=== PATIENT | male | born 1995 | race Caucasian/White ===

== ENCOUNTER 2023-12-10 16:41 | Emergency (ER) | payer SELFPAY ==
--- OUTSIDE RECORDS SUMMARY | 2023-12-10 16:44 | XMS REPORT | Continuity of Care Document ---
Author Name Unknown Address [address] [facility] [place] [address] [facility] Address [address] [place] [address] Care Team Providers Care Care Professionals Name Role Phone Pcp, Patient Does Not Have A Primary Care Physic leila DISHA LIAO Attending Clinician Unavailable DISHA LIAO Attending Clinician Unavailable Jean SZYMANSKI Attending Clinician Unavailable Jean Garcia Attending Clinician [phone] Doctor Unassigned, [place] Attending Clinician U Alejandro Emanuel Attending Clinician ALEJANDRO JONES Attending Clinician Unavailable Jean SZYMANSKI Admitting Clinician Unavailable Problems Condition Name Condition Details Condition Category Status Onset Date Resolution Date Last Treatment Date Treating Clinician Comments Source Leg pain, right Leg pain, right Disease Active 12-17 00:00: 00 [facility] Allergies, Adverse Reactions, Alerts Allergy Name Allergy Type Status Severity Reaction(s) Onset Date Inactive Date Treating Clinician Comments Source NO KNOWN ALLERGIE S Drug Class Active [facility] Social History Social Habit Start Date Stop Date Quantity Comments Source Exposure to SARS-CoV-2 (event) Not sure [facility] 2023-11-29 00:00:00 2023-11-29 00:00:00 0 /d [facility] History of Social function 2023-11-29 00:00:00 2023-11-29 00:00:00 [facility] Sex Assigned At 1995 00:00:00 1995 00:00:00 [facility] Smoking Status Start Date Stop Date Source Never smoked tobacco [facility] Medications Ordered Medication Name Filled Medication Name Start Date Stop Date Current Medication? Ordering Clinician Indication Dosage Frequency Signature (SIG) Comments Components Source IBUPROFEN, BULK, MISC 11-28 11:26: 12 Yes [facility] celecoxib (CELEBREX) 100 mg capsule 11-28 00:00: 00 12-06 04:59 :00 Yes [id number] 100mg Take 1 capsule by mouth in the morning and 1 capsule in the evening. Take with meals. Do all this for 7 days. [facility] ibuprofen 600 mg tablet 2019-09 00:00: 00 Yes [id number] 600mg Take 1 tablet by mouth every 6 (six) hours as needed for Pain (scale 4-6). [facility] tetanus-dip htheria toxoids (TDVAX) 2-2 Lf unit/0.5 mL injection 0.5 mL 02-07 00:15: 00 02-06 23:27 :00 No .5mL 0.5 mL, Intramuscu lar, ONCE, 1 dose, Wed02/07/20 at 191, Routine [facility] cephALEXin (KEFLEX) capsule 500 mg 02-07 00:15: 00 02-06 23:26 :00 No 500mg 500 mg, Oral, ONCE, 1 dose, Wed02/07/20 at 191, HARDY
Re ason for Anti-Infec tive: Documented Infection< br>Documen gopi Infection Site: Skin / Soft Tissue
Duration of Therapy: 7 days [facility] doxycycline hyclate (Vibramycin ) capsule 100 mg 02-07 00:15: 00 02-06 23:26 :00 No 100mg 100 mg, Oral, ONCE, 1 dose, Wed02/07/20 at 191, HARDY
Re ason for Anti-Infec tive: Documented Infection< br>Documen gopi Infection Site: Skin / Soft Tissue
Duration of Therapy: 7 days [facility] ibuprofen 800 mg tablet 02-06 00:00: 00 Yes [id number] 800mg Take 1 tablet by mouth every 8 (eight) hours as needed for Pain (scale 1-3). [facility] cephALEXin 500 mg capsule 02-06 00:00: 00 02-14 04:59 :00 No [id number] 500mg Take 1 capsule by mouth 4 (four) times daily for 7 days. [facility] doxycycline hyclate 100 mg capsule 02-06 00:00: 00 02-14 04:59 :00 No [id number] 100mg Take 1 capsule by mouth 2 (two) times daily for 7 days. [facility] IBUPROFEN, BULK, MISC 12-17 20:52: 02 Yes [facility] 12-17 15:52: 02 Yes [facility] Immunizations Ordered Immunization Name Filled Immunization Name Date Status Comments Source Td 2020-02-07 00:00:00 Completed [facility] Td 2020-02-07 00:00:00 Completed [facility] TD, NOS Unknown Completed [facility] TD, NOS Unknown Completed [facility] TD, NOS Unknown Completed [facility] TD, NOS Unknown Completed [facility] Vital Signs Vital Name Observation Time Observation Value Comments S ource Systolic blood pressure 2023-11-29 16:25:00 124 mm[Hg] [facility] Diastolic blood pressure 2023-11-29 16:25:00 83 mm[Hg] [facility] Heart rate 2023-11-29 16:25:00 63 /min [facility] Body temperature 2023-11-29 16:24:00 36.61 Vivi [facility] Respiratory rate 2023-11-29 16:24:00 18 /min [facility] Body height 2023-11-29 16:24:00 165.1 cm [facility] Body weight 2023-11-29 16:24:00 71.396 kg [facility] BMI 2023-11-29 16:24:00 26.19 kg/m2 [facility] Oxygen saturation in Arterial blood by Pulse oximetry 2023-11-29 16:24:00 99 /min [facility] Systolic blood pressure 2023-11-17 03:54:00 147 mm[Hg] [facility] Diastolic blood pressure 2023-11-17 03:54:00 100 mm[Hg] [facility] Heart rate 2023-11-17 03:54:00 97 /min [facility] Respiratory rate 2023-11-17 03:54:00 15 /min [facility] Body temperature 2023-11-17 00:26:00 36.61 Vivi [facility] Body height 2023-11-17 00:26:00 165.1 cm [facility] Body weight 2023-11-17 00:26:00 70.489 kg [facility] BMI 2023-11-17 00:26:00 25.86 kg/m2 [facility] Oxygen saturation in Arterial blood by Pulse oximetry 2023-11-17 00:26:00 100 /min [facility] Respiratory rate 2020-07-09 21:00:00 18 /min [facility] Systolic blood pressure 2020-07-09 19:30:00 140 mm[Hg] [facility] Diastolic blood pressure 2020-07-09 19:30:00 106 mm[Hg] [facility] Heart rate 2020-07-09 19:30:00 96 /min [facility] Oxygen saturation in Arterial blood by Pulse oximetry 2020-07-09 19:30:00 97 /min [facility] Body temperature 2020-07-09 18:47:00 37.06 Vivi [facility] Body weight 2020-07-09 18:47:00 65.772 kg [facility] BMI 2020-07-09 18:47:00 23.40 kg/m2 [facility] Systolic blood pressure 2020-02-07 23:31:42 152 mm[Hg] [facility] Diastolic blood pressure 2020-02-07 23:31:42 107 mm[Hg] [facility] Heart rate 2020-02-07 23:31:42 108 /min [facility] Respiratory rate 2020-02-07 23:31:42 17 /min [facility] Body temperature 2020-02-07 22:52:00 37 Vivi [facility] Body height 2020-02-07 22:52:00 167.6 cm [facility] Body weight 2020-02-07 22:52:00 70.761 kg [facility] BMI 2020-02-07 22:52:00 25.18 kg/m2 [facility] Oxygen saturation in Arterial blood by Pulse oximetry 2020-02-07 22:52:00 99 /min [place] [facility] Procedures Procedure Date / Time Performed Performing Clinician Source ED SPLINT APPLICATION 2023-11-17 03:41:42 Jean Szymanski [facility] ASSIGNMENT OF BENEFITS 2023-11-17 00:36:00 Docto r Unassigned, [place] [facility] CONSENT/REFUSAL FOR DIAGNOSIS AND TREATMENT 2023-11-17 00:21:47 Doctor Unassigned, [place] [facility] NOTICE OF PRIVACY PRACTICES 2023-11-17 00:20:07 Doctor Unassigned, [place] [facility] URINALYSIS 2020-07-09 20:22:00 [facility] LIPASE 2020-07-09 19:24:00 Jean Szymanski [facility] MAGNESIUM 2020-07-09 19:24:00 Jena [facility]zymanski [facility] COMP. METABOLIC PANEL (74154) 2020-07-09 19:24:00 Jean Szymanski [facility] CBC WITH DIFF 2020-07-09 19:24:00 Jean Szymanski [facility] PROTHROMBIN TIME / INR 2020-07-09 19:24:00 Jean Szymanski [facility] ACTIVATED PARTIAL THRMPLAS YASHIRA 2020-07-09 19:24:00 Jean Szymanski [facility] NOTICE OF PRIVACY PRACTICES 2020-07-09 18:38:08 Doctor Unassigned, [place] [facility] CONSENT/REFUSAL FOR DIAGNOSIS AND TREATMENT 2020-07-09 18:37:45 Doctor Unassigned, [place] [facility] Encounters Start Date/Time End Date/Time Encounter Type Admission Type Attending Clinicians Care Facility Care Department Encounter ID Source 2023-11-29 11:30:00 2023-11-29 11:45:02 Outpatient R DISHA LIAO [facility] [id number] [facility] 2023-11-29 11:30:00 2023-11-29 11:45:02 Office Visit Disha Liao [facility] [id number] [id number] 4.2.7.2.686 [id number] [facility] 2023-11-16 19:27:00 2023-11-16 23:30:00 Emergency X Jean SZYMANSKI [facility] ERT [id number] [facility] 2023-11-16 19:27:00 2023-11-16 23:30:00 Emergency Jean Szymanski [facility] [id number] 350.1.13.10 4.2.7.2.686 [id number] [facility] 2023-11-16 00:00:00 2023-11-16 00:00:00 Orders Only Doctor Unassigned, [place] [facility] [id number] 350.1.13.10 4.2.7.2.686 [id number] [facility] 2023-10-11 13:50:24 2023-10-11 13:50:[address] [facility] [id number] Ayaan Magallanes 2020-07-09 13:04:00 2020-07-09 15:29:00 Emergency Jean Szymanski [facility] [id number] [id number] 4.2.7.2.686 [id number] [facility] 2020-07-09 12:37:00 2020-07-09 12:37:00 Emergency X [facility] ERT [id number] [facility] 2020-02-07 17:56:30 2020-02-07 18:43:00 Emergency Alejandro Jones [facility] [id number] 350.1.13.10 4.2.7.2.686 [id number] [facility] 2020-02-07 17:48:00 2020-02-07 17:48:00 Emergency X ALEJANDRO JONES [facility] ERT [id number] [facility] Results Test Description Test Time Test Comments Results Result Co mments Source [facility] [id number] 19:57:00* Test Item Value Reference Range Interpretation Comme [facility] APTT Patient (test code = 3173-2) See_Comment [Automated message] The system which generated this result transmitted reference range: 23 - 38 Seconds. The reference range was not used to interpret this result as normal/abnormal. ELYSSA (test code = ELYSSA) The [facility] patient population mean normal value for aPTT is 30 seconds. Lab Interpretation (test code = 86758-7) Normal [facility] / [id number] 19:55:00* Test Item Value Reference Range Interpretation Comme [facility] PROTIME PATIENT (test code = 5964-2) See_Comment [Automated messa ge] The system which generated this result transmitted reference range: 12.0 - 14.7 Seconds. The reference range was not used to interpret this result as normal/abnormal. INR (test code = 6301-6) Normal INR <1.1; Warfarin Therapeutic range 2.0 to 3.0 or 2.5 to 3.5, depending upon the indications. Lab Interpretation (test code = 22396-4) Normal [facility]03 19:52:00* Test Item Value Reference Range Interpretation Comme [facility] MAGNESIUM (test code = 7243891910) 2.0 mg/dL 1.7-2.4 Lab Interpretation (test cod e = 85334-0) [facility] (62412)2020-07-09 19:51:00* Test Item Value Reference Range Interpretation Comme nts NA (test code = 1830580450) 139 mmol/L 135-145 K (test code = 8382339234) 4.2 mmol/L 3.5-5 CL (test code = 5927737567) 101 mmol/L 98-108 CO2 TOTAL (test code = 1691214328) 28 mmol/L 23-31 AGAP (test code = 0434813795) 2-16 BUN (test code = 4225386208) 4 mg/dL 7-23 L GLUCOSE (test code = 5544269069) 106 mg/dL 70-110 CREATININE (test code = 8779423720) 0.81 mg/dL 0.6-1.25 TOTAL BILI (test code = 7523235532) 0.8 mg/dL 0.1-1.1 CALCIUM (test code = 2939305035) 9.8 mg/dL 8.6-10.6 T PROTEIN (test code = 4251430934) 8.7 g/dL 6.3-8.2 H ALBUMIN (test code = 9415509866) 5.1 g/dL 3.5-5 H ALK PHOS (test code = 6601141465) 104 U/L 34-122 ALTv (test code = 1742-6) 96 U/L 5-50 H AST(SGOT) (test code = 5786512282) 167 U/L 13-40 H eGFR Calculation (Non-) (test code = 6032988123) mL/min/1.73m2 eGFR Calculation () (test code = 3196365090) mL/min/1.73m2 ELYSSA (test code = ELYSSA) Association of Glomerular Filtration Rate (GFR) and Staging of Kidney Disease* + --+ --+ ------+| GFR (mL/min/1.73 m2) ?| With Kidney Damage ?| ?Without Kidney Damage+ --------+ --------+ +| ?>90 ?| ?Stage one ?| ? Normal ?+ ---+ ---+ -------+| ?60-89 ?| ?Stage two ?| ? Decreased GFR ? + --+ --+ ------+| ?30-59 ?| ?Stage three ?| ? Stage three ? + --+ --+ ------+| ?15-29 ?| ?Stage four ? | ? Stage four ?+ ---+ ---+ -------+| ?<15 (or dialysis) ? ?| ?Stage five ? | ? Stage five ?+ ---+ ---+ -------+ *Each stage assumes the associated GFR level has been in effect for at least three months. ?Stages 1 to 5, with or without kidney disease, indicate chronic kidney disease. Notes: Determination of stages one and two (with eGFR >59mL/min/1.73 m2) requires estimation of kidney damage for at least three months as defined by structural or functional abnormalities of the kidney, manifested by either:Pathological abnormalities or Markers of kidney damage (including abnormalities in the composition of the blood or urine or abnormalities in imaging tests). Lab Interpretation (test code = 51681-3) [facility] 19:51:00* Test Item Value Reference Range Interpretation Comme nts LIPASE (test code = 5447649823) 252 U/L 0-220 H Lab Interpretation (test cod e = 02946-3) [facility]normal [facility] [id number] 19:48:00* Test Item Value Reference Range Interpretation Comme nts WBC (test code = 6690-2) See_Comment [Automated WP Fail-Safe] The system which generated this result transmitted reference range: 4.20 - 10.70 10*3/?L. The reference range was not used to interpret this result as normal/abnormal. RBC (test code = 789-8) See_Comment [Thirsty] The system which generated this result transmitted reference range: 4.26 - 5.52 10*6/?L. The reference range was not used to interpret this result as normal/abnormal. HGB (test code = 718-7) 15.1 g/dL 12.2-16.4 HCT (test code = 4544-3) 43.3 % 38.4-49.3 MCV (test code = 787-2) 94.7 fL 81.7-95.6 MCH (test code = 785-6) 33.0 pg 26.1-32.7 H MCHC (test code = 786-4) 34.9 g/dL 31.2-35 RDW-SD (test code = 53983-4) 40.5 fL 38.5-51.6 RDW-CV (test code = 788-0) 11.7 % 12.1-15.4 L PLT (test code = 777-3) See_Comment [Automated messa ge] The system which generated this result transmitted reference range: 150 - 328 10*3/?L. The reference range was not used to interpret this result as normal/abnormal. MPV (test code = 84894-9) 10.0 fL 9.8-13 NRBC/100 WBC (test code = 5411598422) See_Comment [Automated Vontoo ssage] The system which generated this result transmitted reference range: 0.0 - 10.0 /100 WBCs. The reference range was not used to interpret this result as normal/abnormal. NRBC x10^3 (test code = 2851201609) <0.01 See_Comment [Automated messa ge] The system which generated this result transmitted reference range: 10*3/?L. The reference range was not used to interpret this result as normal/abnormal. GRAN MAT (NEUT) % (test code = 770-8) 48.9 % IMM GRAN % (test code = 3368852889) 0.20 % LYMPH % (test code = 736-9) 37.7 % MONO % (test code = 5905-5) 11.5 % EOS % (test code = 713-8) 0.5 % BASO % (test code = 706-2) 1.2 % GRAN MAT x10^3(ANC) (test code = 6496309221) 2.84 10*3/uL 1.99-6.95 IMM GRAN x10^3 (test code = 2631303891) <0.03 0-0.06 LYMPH x10^3 (test code = 731-0) 2.19 10*3/uL 1.09-3.23 MONO x10^3 (test code = 742-7) 0.67 10*3/uL 0.36-1.02 EOS x10^3 (test code = 711-2) 0.03 10*3/uL 0.06-0.53 L BASO x10^3 (test code = 704-7) 0.07 10*3/uL 0.01-0.09 Lab Interpretation (test code = 46685-2) Abnormal [facility] Notes Date/Time Note Provider Source 2023-11-16 23:29:21 bo5jQ/jfBRIizpkyUP5+ 0Gnsz/0H3+h91S nV50/WPx5iMzVcDse26i9Wy6vUlYW/2023T23:29:21 Awake, alert oriented X4, respiratory even and unlabored,skin w/d color appropriate for race, moves all ext well, pt encouraged to follow up with pcp and or return as neededPt given printed and verbal discharge instructions regarding Closed displaced fracture of fifth metacarpal bone of right hand , Pain of right hand, hypertension , patient verbralized understanding and signature obtained, patient denies any other concerns.Advised to seek medical attention for new/prolonged/worsening of symptoms,No adverse reaction to meds given in ER noted upon dischargePt [facility] 66429-0Yieuckzsf department ThfhFW5974-74-24H39:30:18Emergen department NoteTXT1.2.840.465333.1.13.104.2.7 .2.802507|[id number] for patient kryb76033-6ZlmtGXCPZODPQOOZumsziks d C-CDA narrative [id number] J Hoot RN[address] Iq[id number] 98IJNAOZHRBAYVBMHKAKXAGW9331-16-48 T23:30:181.2.840.372535.1.72.3.15| 1.2.840.691313.1.13.104.2.7.2.7278 [id number] Priscilla Cortes RN [facility] 2023-11-16 19:23:17 A6zAMGfVzJzs//hLCng6 mCPKI5WqcAnAIm Wj4CCd0bCdScPk1YSfXbqdRsEXwoE37113 -03-12T19:23:17 Pt arrived with c/o R hand hand. Pt injured his hand 3 days ago by slamming into the truck while changing the oil. Pt hand is is swollen, and pt report the pinky finger hurt the most. Pt is concerned his knuckle is broken. 58781-3Njaisyheu department Triage sjrnXH7194-80-50G05:25:47[facility] Triage noteTXT1.2.840.267393.1.13.104.2.7 .2.287741|[id number] for patient bmhx63043-7Qojkdwhfu department NoteLNNARRATIVEFormatted C-CDA narrative [id number] A Diaz RN[address] Ch[id number] 21GTWSLZNTEZCSSAGMPTVTAL8319-54-62 T19:25:471.2.840.778324.1.72.3.15| 1.2.840.231352.1.13.104.2.7.2.7278 [id number] Lexis Ortiz RN [facility]"
--- NOTE | 2023-12-10 17:57 | RAD REPORT ---
EXAM DESCRIPTION: CTChest Abdomen Pelvis W Cont - 12/10/2023 5:40 pm CLINICAL HISTORY: BLUNT CHEST TRAUMA COMPARISON: No comparisons TECHNIQUE: CT of the chest, abdomen, and pelvis was performed with IV contrast. All CT scans are performed using dose optimization technique as appropriate and may include automated exposure control or mA/KV adjustment according to patient size. FINDINGS: Thorax: Chest Wall: No abnormal mass Lungs: No acute abnormality. Pleura: No effusions or pneumothorax. Abida/Mediastinum: No lymphadenopathy. Mild circumferential thickened distal esophagus . Aorta/Pulmonary Arteries: Unremarkable Heart: Normal size. Abdomen/Pelvis: Liver: Subcentimeter low-density lesion right hepatic lobe is likely benign. Biliary: No biliary ductal dilatation. Stomach: No significant focal abnormality. Duodenum: No significant focal abnormality. Pancreas: No significant abnormality. Spleen: No significant abnormality. Adrenal: No suspicious lesions. Kidney/ureter: No hydronephrosis. No renal calculi. Retroperitoneum: No retroperitoneal adenopathy. Vascular: No aneurysm. Bowel: No bowel obstruction.. Normal appendix. Peritoneum: No ascites or free air. Bladder: Grossly unremarkable. Reproductive: No adnexal masses. Bones: Mildly comminuted left mid clavicle fracture. There is surrounding hematoma. Other: n/a IMPRESSION: Mildly comminuted left mid clavicle fracture without significant displacement or angulat ion. No other evidence of significant trauma is identified in the chest, abdomen, or pelvis.
[2023-12-10 18:03] LABS: Absolute Basophils 0.1 K/uL (0-0.5); Absolute Monocytes 0.7 K/uL (0.1-1.3); Absolute Neutrophil 4.3 K/uL (1.8-8.0); Basophils % 0.9 % (0-1.3); Eosinophils % 0.5 % (0-4.4); Hematocrit 34.6 % (39.6-49.0); Hemoglobin 12.2 g/dL (13.6-17.9); Lymphocytes % 28.4 % (15.3-44.8); MCH 34.4 pg (27.0-35.0); MCHC 35.3 g/dL (32.0-36.0); MCV 97.5 fL (80-100); Monocytes % 10.2 % (3.3-12.3); Nucleated RBC Absolute Count 0.1 (0-0); Nucleated Red Blood Cells % 0.7 % (0-0); Platelets 444 thou/uL (152-406); RBC Red Blood Cell Count 3.55 M/uL (4.33-5.43); Red Cell Distribution Width 14.2 % (12.1-15.2)
--- NOTE | 2023-12-10 18:30 | RAD REPORT ---
EXAM DESCRIPTION: RAD - Humerus Left - 12/10/2023 6:19 pm CLINICAL HISTORY: PAIN COMPARISON: No comparisons FINDINGS/IMPRESSION: Mildly comminuted left mid clavicle fracture with approximately 5 millimeters o f maximal displacement and minimal angulation.
--- NOTE | 2023-12-10 18:30 | RAD REPORT ---
EXAM DESCRIPTION: RAD - Chest Single View - 12/10/2023 6:19 pm CLINICAL HISTORY: PAIN COMPARISON: CHEST SINGLE VIEW dated 11/19/2015; CHEST SINGLE VIEW dated 08/06/2014 FINDINGS: Lines: None. Lungs: No evidence of edema or pneumonia. Pleural: No significant pleural effusions or pneumothorax. Cardiac: The heart size is within normal limits. Mediastinum: Within normal limits. Bones: No acute fractures. Other: None IMPRESSION: No acute cardiopulmonary disease.
--- NOTE | 2023-12-10 18:30 | RAD REPORT ---
EXAM DESCRIPTION: RAD - Clavicle Left - 12/10/2023 6:19 pm CLINICAL HISTORY: PAIN COMPARISON: No comparisons FINDINGS/IMPRESSION: Mildly comminuted left mid clavicle fracture with approximately 5 millimeters o f maximal displacement and slight superior angulation. No other fractures identified.
[2023-12-10] MEDS ORDERED: KETOROLAC 30 MG/ML INJ ONE (19:40)
[2023-12-10] MEDS ORDERED: MORPHINE 4 MG/ML SYR ONE (19:41)
--- NOTE | 2023-12-10 20:24 | EDPHYS ---
Physician Documentation [facility] Name: Elpidio Gilliland Age: 28 yrs Sex: Male : 1995 Arrival Date: 12/10/2023 Time: 16:41 Bed 19 Private MD: ED Physician Kade Yanez HPI: 12/09 17:20 This 28 yrs old Male presents to ER via Ambulatory with complaints of Fall Injury. cp 17:20 The patient or guardian complains of an injury, pain, that is acute. left shoulder and cp left clavicle. Context: resulted from being grabbed and taken to the ground while playing football on Wednesday. 17:20 Onset: The symptoms/episode began/occurred this past Wednesday on . Associated signs cp and symptoms: Pertinent positives: chest pain, Pertinent negatives: Numbness in left hand and left arm Weakness in left hand and left arm. Treatment prior to arrival includes: no previous treatment. Historical: - Allergies: 17:01 NKDA; ll1 - PMHx: 17:01 Hypertensive disorder; ll1 - PSHx: 17:01 None; ll1 - Immunization history:: Adult Immunizations up to date. - Infectious Disease History:: Denies. - Immunization history: Last tetanus immunization: - up to date. - Social history:: Smoking status: Reported history of juuling and/or vaping. ROS: 17:30 MS/extremity: Positive for injury or acute deformity, decreased range of motion, pain, cp of the left clavicle and left shoulder, 17:30 Constitutional: Negative for body aches, chills, fever, poor PO intake, cp 17:30 Neck: Negative for pain with movement, pain at rest, stiffness, 17:30 Cardiovascular: Positive for chest pain, of the left side of chest, 17:30 Respiratory: Negative for cough, shortness of breath, wheezing, 17:30 Back: Negative for pain at rest, pain with movement, 17:30 Neuro: Negative for altered mental status, loss of consciousness, numbness, weakness, 17:30 All other systems are negative, Exam: 17:33 Constitutional: The patient appears in no acute distress, alert, awake, cp non-diaphoretic, non-toxic, well developed, well nourished, in obvious pain, uncomfortable, 17:33 Head/Face: Normocephalic, atraumatic. cp 17:33 Eyes: Periorbital structures: appear normal, Conjunctiva: normal, no exudate, no injection, Sclera: no appreciated abnormality, Lids and lashes: appear normal, bilaterally, 17:33 ENT: External ear(s): are unremarkable, Nose: is normal, Mouth: Lips: moist, Oral mucosa: pink and intact, moist, Posterior pharynx: is normal, airway is patent, no erythema, no exudate, 17:33 Neck: C-spine: vertebral tenderness, is not appreciated, crepitus, is not appreciated, ROM/movement: is normal, is supple, without pain, no range of motions limitations, 17:33 Chest/axilla: Inspection: ecchymosis, that is moderate, of the left supraclavicular area, left clavicle, anterior aspect of left upper chest, left lateral anterior chest and left breast swelling, Palpation: tenderness, that is severe, of the left supraclavicular area and left clavicle, 17:33 Cardiovascular: Rate: normal, Rhythm: regular, Edema: is not appreciated, JVD: is not appreciated, 17:33 Respiratory: the patient does not display signs of respiratory distress, Respirations: shallow respirations, that is mild, Breath sounds: are clear throughout, no decreased breath sounds, no stridor, no wheezing, 17:33 Abdomen/GI: Inspection: abdomen appears normal, Palpation: abdomen is soft and non-tender, in all quadrants, 17:33 Back: no vertebral tenderness to palpation, 17:33 Musculoskeletal/extremity: ROM: limited passive range of motion due to pain, in the left shoulder, Pulses: noted to be 2+ in the left radial artery, Perfusion: the extremity is normally perfused throughout, 17:33 Neuro: Orientation: to person, place \T\ time. Mentation: is normal, Motor: moves all fours, strength is normal, Sensation: is normal, Vital Signs: 17:02 BP 147 / 87; Pulse 92; Resp 18; Temp 97.6; Pulse Ox 100% ; Weight 70.31 kg; Height 5 ll1 ft. 6 in. ; Pain 10/10; 17:02 Body Mass Index 25.02 (70.31 kg, 167.64 cm) ll1 17:02 Pain Scale: Adult ll1 [place] Coma Score: 20:37 Eye Response: spontaneous(4). Motor Response: obeys commands(6). Verbal Response: cp4 oriented(5). Total: 15. Trauma Score (Adult): 20:37 Eye Response: spontaneous(1); Verbal Response: oriented(1); Motor Response: obeys cp4 commands(2); Systolic BP: > 89 mm Hg(4); Respiratory Rate: 10 to 29 per min(4); [place] Score: 15; Trauma Score: 12 MDM: 16:55 Patient medically screened. cp 20:23 Data reviewed: vital signs, nurses notes, radiologic studies, CT scan, plain films, and cp as a result, I will discharge patient. 20:23 Differential diagnosis: Anterior dislocation with fracture, Anterior dislocation cp without fracture, Posterior dislocation with fracture, Posterior dislocation without fracture, humeral head fracture. I considered the following discharge prescriptions or medication management in the emergency department Medications were administered in the Emergency Department. See MAR. Counseling: I had a detailed discussion with the patient and/or guardian regarding the historical points, exam findings, and any diagnostic results supporting the discharge/admit diagnosis, lab results, radiology results, the need for outpatient follow up, for definitive care, a orthopedic surgeon, to return to the emergency department if symptoms worsen or persist or if there are any questions or concerns that arise at home. Response to treatment: the patient's symptoms have markedly improved after treatment, and as a result, I will discharge patient. 12/09 17:08 Order name: Basic Metabolic Panel; Complete Time: 19:19 12/09 19:19 Interpretation: Reviewed. 12/09 17:08 Order name: CBC with Diff; Complete Time: 19:19 12/09 19:19 Interpretation: Normal except: RBC 3.55; HGB 12.2; HCT 34.6; PLT 444; MPV 7.0. 12/09 17:08 Order name: Type And Screen; Complete Time: 19:19 12/09 17:08 Order name: XRAY Chest (1 view); Complete Time: 19:19 12/09 19:21 Interpretation: Report reviewed. 12/09 17:08 Order name: XRAY Clavicle LEFT; Complete Time: 19:19 12/09 17:08 Order name: XRAY Humerus LEFT; Complete Time: 19:19 12/09 19:21 Interpretation: Report reviewed. cp 12/09 17:19 Order name: CT Chest, Abdomen, Pelvis - W/Contrast; Complete Time: 19:19 cp 12/09 19:22 Interpretation: Report reviewed. cp 12/09 17:08 Order name: Labs collected and sent; Complete Time: 17:53 cp 12/09 19:22 Order name: Sling; Complete Time: 19:34 cp Administered Medications: 19:46 Drug: Ketorolac IVP 15 mg IVP once Route: IVP; Site: right antecubital; cp4 20:43 Follow up: Response: No adverse reaction cp4 19:47 Drug: morphine IVP or IV 4 mg IVP once over 4 mins Route: IVP; Infused Over: 4 mins; cp4 Site: right antecubital; 20:42 Follow up: Response: No adverse reaction cp4 Disposition Summary: 12/10/23 20:24 Discharge Ordered Notes: Location: Home cp Problem: new cp Symptoms: have improved cp Condition: Stable cp Diagnosis - Displaced fracture of shaft of left clavicle cp Followup: cp - With: Ace Santiago MD - When: 2 - 3 days - Reason: Recheck today's complaints Discharge Instructions: - Discharge Summary Sheet cp - Clavicle Fracture cp Forms: - Medication Reconciliation Form cp - Thank You Letter cp - Antibiotic Education cp - Prescription Opioid Use cp - Patient Portal Instructions cp - Leadership Thank You Letter cp Prescriptions: - acetaminophen-codeine 300-30 mg Oral tablet - take 2 tablet ORAL route every 8 hours; 16 tablet; Refills: 0, Product cp Selection Permitted - Ibuprofen 800 mg Oral Tablet - take 1 tablet ORAL route every 8 hours As needed take with food; 30 tablet; cp Refills: 0, Product Selection Permitted Addendum: 12/12/2023 00:14 Co-signature as Attending Physician, Kade Yanez MD I reviewed the patient's care r t provided by the Advanced Practice Provider and agree with the diagnosis and treatment plan. Signatures: Dispatcher [employer] EDMS Obed Wiggins PA PA cp Brijesh Andersen, CORNELIUS RN ll1 Kade Yanez MD MD rt Sarah Lares cp4 Corrections: (The following items were deleted from the chart) 12/09 17:02 16:55 Allergies: PENICILLINS; ll1 ll1 17:08 17:08 Humerus Left+RAD.RAD.BRZ ordered. EDMS EDMS
--- NOTE | 2023-12-10 20:24 | ER ---
Nurse's Notes [facility] Name: Elpidio Gilliland Age: 28 yrs Sex: Male : 1995 Arrival Date: 12/10/2023 Time: 16:41 Bed 19 Private MD: Diagnosis: Displaced fracture of shaft of left clavicle Presentation: 12/09 17:02 Chief complaint: Patient states: Playing football 12/04. L upper shoulder pain. ll1 Extensive bruising L chest, SOB only when laying flat. Coronavirus screen: Client denies travel out of the [place] in the last 14 days. At this time, the client does not indicate any symptoms associated with coronavirus-19. Ebola Screen: Patient denies travel to an Ebola-affected area in the 21 days before illness onset. Initial Sepsis Screen: Does the patient meet any 2 criteria? No. Patient's initial sepsis screen is negative. Does the patient have a suspected source of infection? No. Patient's initial sepsis screen is negative. Risk Assessment: Do you want to hurt yourself or someone else? Patient reports no desire to harm self or others. Onset of symptoms was December 05, 2023. 17:02 Method Of Arrival: Ambulatory ll1 17:02 Acuity: DARLING 3 ll1 20:40 Care prior to arrival: None. Mechanism of Injury: Fall from standing position. Trauma cp4 event details: Injury occurred in the [facility]. Triage Assessment: 17:04 General: Appears uncomfortable, Behavior is calm, cooperative, appropriate for age. ll1 Pain: Complains of pain in L chest/shoulder area Pain currently is 10 out of 10 on a pain scale. Quality of pain is described as aching, throbbing, Pain began 12/05/23 Aggravated by increased activity, repositioning. Derm: Reports extensive bruising L chest. Musculoskeletal: Circulation, motion, and sensation intact. Capillary refill < 3 seconds, Swelling present in L clavicle Reports pain in L clavicle. Injury Description: Bruise Deformity sustained to L clavicle. Trauma Activation: Not Applicable Physician: ED Physician; Name: ; Notified At: ; Arrived At: Physician: General Surgeon; Name: ; Notified At: ; Arrived At: Physician: Radiology; Name: ; Notified At: ; Arrived At: Physician: Respiratory; Name: ; Notified At: ; Arrived At: Physician: Lab; Name: ; Notified At: ; Arrived At: Historical: - Allergies: 17:01 NKDA; ll1 - PMHx: 17:01 Hypertensive disorder; ll1 - PSHx: 17:01 None; ll1 - Immunization history:: Adult Immunizations up to date. - Infectious Disease History:: Denies. - Immunization history: Last tetanus immunization: - up to date. - Social history:: Smoking status: Reported history of juuling and/or vaping. Screenin:33 [facility] ED Fall Risk Assessment (Adult) History of falling in the last 3 months, cp4 including since admission No falls in past 3 months (0 pts) Confusion or Disorientation No (0 pts) Intoxicated or Sedated No (0 pts) Impaired Gait No (0 pts) Mobility Assist Device Used No (0 pt) Altered Elimination No (0 pt) Score/Fall Risk Level 0 - 2 = Low Risk Oriented to surroundings, Maintained a safe environment, Assessed \T\ reinforced patient's understanding of fall precautions, Hourly rounding (assess needs \T\ fall precautionary measures) done. Abuse screen: Denies threats or abuse. Abuse screen: Denies threats or abuse. Nutritional screening: No deficits noted. Tuberculosis screening: No symptoms or risk factors identified. Primary Survey: 20:37 NO uncontrolled hemorrhage observed. A: The client is awake and alert. The airway is cp4 patent. Breathing/Chest: Spontaneous respiratory effort, equal unlabored respirations, breath sounds clear bilaterally, regular pattern, symmetrical chest rise and fall. Circulation: No external hemorrhage present. Regular and strong central pulse, skin warm/dry/normal color. Disability Pupils are equal, round, reactive to light and accommodation. Client is alert. Exposure/Environment: A warming method has been applied:. Reassessment Alertness and Airway: Awake and alert. The airway is patent. Breathing: Spontaneous respiratory effort, equal unlabored respirations, breath sounds clear bilaterally, regular pattern with symmetrical chest rise and fall. Circulation: No external hemorrhage noted. Regular and strong central pulse, skin warm/dry/normal color. Disability: Pupils Pupils are equal, round, reactive to light and accomodation. Alert. Assessment: 17:29 Reassessment: Getting CT, SO brought to exam 19. ll1 18:33 General: Appears distressed, Behavior is calm, cooperative, appropriate for age. Pain: cp4 Complains of pain in left shoulder. Musculoskeletal: Reports pain in left shoulder since 12/05/2023. Vital Signs: 17:02 BP 147 / 87; Pulse 92; Resp 18; Temp 97.6; Pulse Ox 100% ; Weight 70.31 kg; Height 5 ll1 ft. 6 in. ; Pain 10/10; 17:02 Body Mass Index 25.02 (70.31 kg, 167.64 cm) ll1 17:02 Pain Scale: Adult ll1 [place] Coma Score: 20:37 Eye Response: spontaneous(4). Motor Response: obeys commands(6). Verbal Response: cp4 oriented(5). Total: 15. Trauma Score (Adult): 20:37 Eye Response: spontaneous(1); Verbal Response: oriented(1); Motor Response: obeys cp4 commands(2); Systolic BP: > 89 mm Hg(4); Respiratory Rate: 10 to 29 per min(4); [place] Score: 15; Trauma Score: 12 ED Course: 16:44 Patient arrived in ED. rg4 16:45 Obed Wiggins PA is PHCP. cp 16:46 Aldo Llanos MD is Attending Physician. cp 16:55 Arm band placed on. ll1 17:03 Triage completed. ll1 17:42 CT Chest, Abdomen, Pelvis - W/Contrast In Process Unspecified. EDMS 17:52 Sarah Lares is Primary Nurse. cp4 17:53 Basic Metabolic Panel Sent. cp4 17:53 CBC with Diff Sent. cp4 17:53 Type And Screen Sent. cp4 18:21 XRAY Chest (1 view) In Process Unspecified. EDMS 18:21 XRAY Clavicle LEFT In Process Unspecified. EDMS 18:21 XRAY Humerus LEFT In Process Unspecified. EDMS 18:33 Placed in gown. Bed in low position. Call light in reach. Side rails up X 1. cp4 20:23 Kade Yanez MD is Attending Physician. cp 20:23 Ace Santiago MD is Referral Physician. cp 20:40 No provider procedures requiring assistance completed. intact, bleeding controlled, No cp4 redness/swelling at site. Pressure dressing applied. 20:41 Provided Education on: clavicle fracture. cp4 20:41 O2 via room air. cp4 20:42 Thermoregulation: warm blanket given to patient. cp4 Administered Medications: 19:46 Drug: Ketorolac IVP 15 mg IVP once Route: IVP; Site: right antecubital; cp4 20:43 Follow up: Response: No adverse reaction cp4 19:47 Drug: morphine IVP or IV 4 mg IVP once over 4 mins Route: IVP; Infused Over: 4 mins; cp4 Site: right antecubital; 20:42 Follow up: Response: No adverse reaction cp4 Medication: 18:33 VIS not applicable for this client. cp4 Intake: 20:37 PO: 0ml; Total: 0ml. cp4 Output: 20:37 Urine: 0ml; Total: 0ml. cp4 Outcome: 20:24 Discharge ordered by MD. cp 20:39 Patient left the ED. cp4 20:41 Discharged to home ambulatory, cp4 20:41 Condition: stable 20:41 Discharge instructions given to patient, Instructed on discharge instructions, follow up and referral plans. medication usage, Demonstrated understanding of instructions, follow-up care, medications, Prescriptions given X 2, 20:41 Patient's length of stay was not longer than 2 hours. cp4 Signatures: Dispatcher [employer] EDMS Obed Wiggins PA PA cp Garcia, Rubi rg4 Brijesh Andersen RN RN Sarah Gamble cp4 Corrections: (The following items were deleted from the chart) 17:02 16:55 Allergies: PENICILLINS; ll1 ll1
[2023-12-11 01:49] VITALS: BP 147/87; TEMP 97.6; O2SAT 100
== END 2023-12-10 20:39 | disposition home or self-care (01) ==
LOC: ER 16:41
DX: S42.022A Displaced fracture of shaft of left clavicle, initial encounter for closed fracture (principal)
CPT/HCPCS: 36415; 71045; 71260; 74177; 80048; 85025; 86850; 86900; 86901; 96374; 96375; 99285; Q9967